=== PATIENT | female | born 1945 | race Caucasian/White ===

== ENCOUNTER 2017-01-28 18:07 | Inpatient (IN) | payer OTHER ==
[~2017-01-28] VITALS: Ht 162.6 cm; Wt 83.9 kg
[2017-01-28] MEDS ORDERED: COREG3.125 MG ORAL (18:08)
[2017-01-28] MEDS ORDERED: TRAZODONE HCL150 MG ORAL (18:08)
[2017-01-28] MEDS ORDERED: OXYCODONE HCL5 M2 ORAL (18:08)
[2017-01-28] MEDS ORDERED: CARVEDILOL3.125 MG ORAL (18:08)
[2017-01-28] MEDS ORDERED: GABAPENTIN100 MG ORAL (18:08)
[2017-01-28] MEDS ORDERED: FUROSEMIDE20 M1 ORAL (18:08)
[2017-01-28 18:15] VITALS: BP 168/71
[2017-01-28 18:30] VITALS: BP 101/56
[2017-01-28 19:07] LABS: APPEARANCE,URINE CLEAR; BASOPHILS % (AUTO) 0.7 % (0.0-2.0); EOSINOPHILS % (AUTO) 0.5 % (0.0-3.0); KETONES,URINE 3+ (NEGATIVE); LEUKOCYTE ESTERASE ,URINE 1+ (NEGATIVE); LYMPHOCYTES % (AUTO) 17.8 % (20.0-45.0); MEAN CORPUSCULAR HEMOGLOBIN 29.6 PG (27.0-31.0); MEAN CORPUSCULAR HGB CONC 33.1 G/DL (32.0-36.0); MEAN CORPUSCULAR VOLUME 89 FL (80-99); MEAN PLATELET VOLUME 6.9 FL (6.5-10.1); MONOCYTES % (AUTO) 8.9 % (1.0-10.0); NEUTROPHILS % (AUTO) 72.2 % (45.0-75.0); NITRITE,URINE NEGATIVE (NEGATIVE); PH,URINE 7 (4.5-8.0); PLATELET COUNT 180 K/UL (150-450); PROTEIN,URINE 3+ (NEGATIVE); RED BLOOD COUNT 4.17 M/UL (4.20-5.40); RED CELL DISTRIBUTION WIDTH 17.3 % (11.6-14.8); UROBILINOGEN,URINE 4 MG/DL (0.0-1.0); WHITE BLOOD COUNT 5.3 K/UL (4.8-10.8)
[2017-01-28 19:14] LABS: ANION GAP 6 mmol/L (5-15); CALCIUM 9.9 MG/DL (8.5-10.1); CARBON DIOXIDE 30 MMOL/L (21-32); CHLORIDE 102 MMOL/L (98-107); CREATININE 0.9 MG/DL (0.55-1.30); POTASSIUM 4.9 MMOL/L (3.5-5.1); SODIUM 138 MMOL/L (136-145)
[2017-01-28 19:15] LABS: AMMONIA 5 umol/L (11-32); AMORPHOUS SEDIMENT,UR FEW /LPF; BACTERIA,URINE FEW /HPF; SQUAMOUS EPITHELIAL CELL,UR FEW /LPF (NONE/OCC)
[2017-01-28 19:17] LABS: ICTOTEST NEGATIVE
[2017-01-28 19:40] LABS: ALANINE AMINOTRANSFERASE 74 U/L (12-78); ALBUMIN/GLOBULIN RATIO 1.1 (1.0-2.7); ASPARTATE AMINO TRANSFERASE 123 U/L (15-37); CKMB 2.6 NG/ML (0.0-3.6); TOTAL PROTEIN 7.4 G/DL (6.4-8.2)
[2017-01-28 20:30] VITALS: BP 159/67
[2017-01-28 21:00] VITALS: BP 171/88
[2017-01-28 21:40] VITALS: BP 156/76
[2017-01-28 22:00] VITALS: BP 171/88
--- NOTE | 2017-01-28 22:38 | Emergency Room Report ---
History of Present Illness General Chief Complaint: Altered Level of Consciousness Source: Patient Present Illness HPI 71-year-old female presents ED for evaluation. Daughter at bedside states that patient has been more altered his usual. Daughter called patient today and on the phone patient appeared confused and forgetful. Patient is normally awake alert oriented x4. Patient lives by herself. Last normal was 2 days ago. Patient states she feels okay but is not know why she is here. Denies any fevers or chills. She has history of aneurysm. Denies headache. Does not remember speaking her daughter earlier today. denies chest pain or shortness of breath. Allergies: Coded Allergies: ATORVASTATIN (Verified Allergy, Unknown, 01/28/17) CIPROFLOXACIN (Verified Allergy, Unknown, 01/28/17) NSAIDS (NON-STEROIDAL ANTI-INFLAMMA (Verified Allergy, Unknown, 01/28/17) Patient History Past Medical History: DM, HTN Past Surgical History: none Pertinent Family History: none Social History: Denies: smoking, alcohol use, drug use Last Menstrual Period: NA Now: No Immunizations: UTD Reviewed Nursing Documentation: PMH: Agreed, PSxH: Agreed Nursing Documentation-PMH Hx Hypertension: Yes Hx Diabetes: Yes Review of Systems All Other Systems: negative except mentioned in HPI Physical Exam Vital Signs Date Time Temp Pulse Resp B/P (MAP) Pulse Ox O2 Delivery O2 Flow Rate FiO2 01/28/17 18:01 97.9 102 16 178/83 97 Room Air Sp02 EP Interpretation: reviewed, normal General Appearance: no apparent distress, alert, GCS 15, non-toxic Head: normocephalic, atraumatic Eyes: bilateral eye normal inspection, bilateral eye PERRL ENT: hearing grossly normal, normal pharynx, no angioedema, normal voice Neck: full range of motion, supple/symm/no masses Respiratory: chest non-tender, lungs clear, normal breath sounds, speaking full sentences Cardiovascular #1: regular rate, rhythm, no edema Cardiovascular #2: 2+ carotid (R), 2+ carotid (L), 2+ radial (R), 2+ radial (L) , 2+ dorsalis pedis (R), 2+ dorsalis pedis (L) Gastrointestinal: normal bowel sounds, non tender, soft, non-distended, no guarding, no rebound Rectal: deferred Genitourinary: normal inspection, no CVA tenderness Musculoskeletal: back normal, gait/station normal, normal range of motion, non- tender Neurologic: alert, responsive, motor strength/tone normal, sensory intact, speech normal, other - AAOX2 Psychiatric: mood/affect normal, no suicidal/homicidal ideation, other - confused Reflexes: 3+ bicep (R), 3+ bicep (L), 3+ tricep (R), 3+ tricep (L), 3+ knee (R) , 3+ knee (L) Skin: normal color, no rash, warm/dry, well hydrated Lymphatic: no adenopathy Medical Decision Making Diagnostic Impression: Primary Impression: Altered level of consciousness ER Course Hospital Course 71-year-old female presents to ED with increased confusion x2 days Differential diagnoses include: VA/unstable angina, arrythmia, dehydration, CVA/ TIA Clinical course Patient placed on stretcher. on teletypesetter monitor. After initial history and physical I ordered labs, EKG, chest x-ray, IVFs, CT Brain labs reviewed- no leukocytosis, hemoglobin/hematocrit ok, electrolytes okay, troponins negative, ammonia ok, UA negative EKG- NSR, no acute ischemic changes interpreted by me Chest x-ray- no acute process CT brain- no acute process. evidence of aneruysmal coiling Case discussed with Dr. Archuleta and he agreed to accept the patient to his service for further care and support I. I feel this is a highly complex case requiring extensive working including EKG/Rhythm strip, Xray/CT/US, Blood/urine lab work, repeat exams while in ED, and administration of strong opiates/narcotics for pain control, admission to hospital or close patient follow up. Diagnosis - ALOC admitted to floor in serious condition Labs Test 01/28/17 18:30 White Blood Count 5.3 K/UL (4.8-10.8) Red Blood Count 4.17 M/UL (4.20-5.40) Hemoglobin 12.4 G/DL (12.0-16.0) Hematocrit 37.3 % (37.0-47.0) Mean Corpuscular Volume 89 FL (80-99) Mean Corpuscular Hemoglobin 29.6 PG (27.0-31.0) Mean Corpuscular Hemoglobin Concent 33.1 G/DL (32.0-36.0) Red Cell Distribution Width 17.3 % (11.6-14.8) Platelet Count 180 K/UL (150-450) Mean Platelet Volume 6.9 FL (6.5-10.1) Neutrophils (%) (Auto) 72.2 % (45.0-75.0) Lymphocytes (%) (Auto) 17.8 % (20.0-45.0) Monocytes (%) (Auto) 8.9 % (1.0-10.0) Eosinophils (%) (Auto) 0.5 % (0.0-3.0) Basophils (%) (Auto) 0.7 % (0.0-2.0) Urine Color Yellow Urine Appearance Clear Urine pH 7 (4.5-8.0) Urine Specific [place] 1.010 (1.005-1.035) Urine Protein 3+ (NEGATIVE) Urine Glucose (UA) Negative (NEGATIVE) Urine Ketones 3+ (NEGATIVE) Urine Occult Blood 1+ (NEGATIVE) Urine Nitrite Negative (NEGATIVE) Urine Bilirubin 1+ (NEGATIVE) Urine Ictotest Negative Urine Urobilinogen 4 MG/DL (0.0-1.0) Urine Leukocyte Esterase 1+ (NEGATIVE) Urine RBC 5-10 /HPF (0 - 2) Urine WBC 2-4 /HPF (0 - 2) Urine Squamous Epithelial Cells Few /LPF (NONE/OCC) Urine Amorphous Sediment Few /LPF (NONE) Urine Bacteria Few /HPF (NONE) Urine Fine Granular Casts 2-4 /LPF (NONE) Sodium Level 138 MMOL/L (136-145) Potassium Level 4.9 MMOL/L (3.5-5.1) Chloride Level 102 MMOL/L (98-107) Carbon Dioxide Level 30 MMOL/L (21-32) Anion Gap 6 mmol/L (5-15) Blood Urea Nitrogen 16 mg/dL (7-18) Creatinine 0.9 MG/DL (0.55-1.30) Estimat Glomerular Filtration Rate mL/min (>60) Glucose Level 121 MG/DL (74-106) Lactic Acid Level 1.30 mmol/L (0.66-2.22) Calcium Level 9.9 MG/DL (8.5-10.1) Total Bilirubin 1.0 MG/DL (0.2-1.0) Aspartate Amino Transf (AST/SGOT) 123 U/L (15-37) Alanine Aminotransferase (ALT/SGPT) 74 U/L (12-78) Alkaline Phosphatase 181 U/L (46-116) Ammonia 5 umol/L (11-32) Total Creatine Kinase 57 U/L (26-308) Creatine Kinase MB 2.6 NG/ML (0.0-3.6) Creatine Kinase MB Relative Index 4.5 Troponin I 0.026 ng/mL (0.000-0.056) Pro-B-Type Natriuretic Peptide 1507 pg/mL (0-125) Total Protein 7.4 G/DL (6.4-8.2) Albumin 3.8 G/DL (3.4-5.0) Globulin 3.6 g/dL Albumin/Globulin Ratio 1.1 (1.0-2.7) EKG Diagnostic Results Rate: normal Rhythm: NSR ST Segments: no acute changes Rhythm Strip Diag. Results Rhythm: NSR, no PVC's, no ectopy Chest X-Ray Diagnostic Results Chest X-Ray Diagnostic Results : Chest X-Ray Ordered: Yes # of Views/Limited/Complete: 1 View Indication: Other - ams EP Interpretation: Yes Interpretation: no consolidation, no effusion, no pneumothorax, no acute cardiopulmonary disease Impression: No acute disease Electronically Signed by: Electronically signed by Adam Magaña MD CT/MRI/US Diagnostic Results CT/MRI/US Diagnostic Results : Imaging Test Ordered: CT Head Impression evidence of coiling. no acute process/bleed Last Vital Signs Date Time Temp Pulse Resp B/P (MAP) Pulse Ox O2 Delivery O2 Flow Rate FiO2 01/28/17 21:40 79 12 156/76 98 Room Air 01/28/17 21:40 98.0 Status: unchanged Disposition: ADMITTED INPATIENT Condition: Serious Referrals: [facility],REFERRING (PCP) ADAM MAGAÑA M.D. Jan 28, 2017 22:38
[2017-01-29 04:00] VITALS: BP 159/79
[2017-01-29 05:45] LABS: BASOPHILS % (AUTO) 0.8 % (0.0-2.0); EOSINOPHILS % (AUTO) 1.7 % (0.0-3.0); LYMPHOCYTES % (AUTO) 23.4 % (20.0-45.0); MEAN CORPUSCULAR HEMOGLOBIN 29.6 PG (27.0-31.0); MEAN CORPUSCULAR HGB CONC 33.3 G/DL (32.0-36.0); MEAN CORPUSCULAR VOLUME 89 FL (80-99); MEAN PLATELET VOLUME 6.3 FL (6.5-10.1); MONOCYTES % (AUTO) 12.5 % (1.0-10.0); NEUTROPHILS % (AUTO) 61.6 % (45.0-75.0); PLATELET COUNT 144 K/UL (150-450); RED BLOOD COUNT 3.72 M/UL (4.20-5.40); RED CELL DISTRIBUTION WIDTH 17.1 % (11.6-14.8); WHITE BLOOD COUNT 4.3 K/UL (4.8-10.8)
[2017-01-29 05:53] LABS: PROTHROMBIN TIME 10.1 SEC (9.30-11.50)
[2017-01-29] MEDS ORDERED: Zosyn 3.375gm inj ONE (05:54)
[2017-01-29 06:13] LABS: ALANINE AMINOTRANSFERASE 152 U/L (12-78); ALBUMIN/GLOBULIN RATIO 0.9 (1.0-2.7); ANION GAP 7 mmol/L (5-15); ASPARTATE AMINO TRANSFERASE 254 U/L (15-37); CALCIUM 9.5 MG/DL (8.5-10.1); CARBON DIOXIDE 28 MMOL/L (21-32); CHLORIDE 103 MMOL/L (98-107); CREATININE 0.9 MG/DL (0.55-1.30); POTASSIUM 3.8 MMOL/L (3.5-5.1); SODIUM 138 MMOL/L (136-145); TOTAL PROTEIN 6.9 G/DL (6.4-8.2)
[2017-01-29] MEDS: Piperacillin/Tazobactam 3.375 GM in D5W 55 ML IVPB SCH ×2 (06:21→14:00)
[2017-01-29 06:24] LABS: BILIRUBIN,DIRECT 0.4 MG/DL (0.0-0.3)
[2017-01-29 06:53] LABS: AMMONIA 23 umol/L (11-32)
[2017-01-29 08:00] VITALS: BP 155/72
[2017-01-29] MEDS: Heparin 5000 units/ml inj SUBQ SCH ×2 (08:55→20:54)
--- NOTE | 2017-01-29 09:26 | Diagnostic Imaging Report ---
Indications: Altered mental status Technique: Spiral acquisitions obtained through the brain. Angled axial and coronal 5 x 5 mm slices were reconstructed. Total dose length product 1390 mGycm. CTDI vol(s) 70 mGy. Dose reduction achieved using automated exposure control Comparison: None. Findings: There are supraclinoid aneurysm coils present. The throw off streak artifact which may obscure pathology. There is encephalomalacia of the inferior parasagittal left frontal lobe. There is minimal encephalomalacia of the inferior right frontal lobe. This results in mild ex vacuo dilatation of the inferior frontal horn of the left lateral ventricle. No acute intracranial hemorrhage or edema. No mass effect nor midline shift. Normal smalls-white differentiation. There is mild age-related enlargement of the ventricles and extra axial CSF spaces. The included orbits and sinuses are unremarkable. The calvarium is intact. 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 Bilateral left greater than right inferior frontal encephalomalacia Negative for acute intracranial bleed or mass effect This agrees with the preliminary interpretation provided overnight by [facility] teleradiology service. The CT scanner at [facility] is accredited by the [employer] and the scans are performed using protocols designed to limit radiation exposure to as low as reasonably achievable to attain images of sufficient resolution adequate for diagnostic evaluation.
--- NOTE | 2017-01-29 09:27 | Diagnostic Imaging Report ---
Indication: Shortness of breath Technique: One view of the chest Comparison: none Findings: Lungs and pleural spaces are clear. Heart size is normal. The aorta is tortuous Impression: No acute process
[2017-01-29 12:00] VITALS: BP 154/77
--- NOTE | 2017-01-29 15:06 | Diagnostic Imaging Report ---
Indication: Abnormal liver function tests Technique: Childress-scale and duplex images of the upper abdomen were obtained Comparison: none Findings: Gallbladder is surgically absent. Sonographic Smith's sign is negative. Common bile duct measures 15 mm in diameter. There is some intrahepatic ductal dilatation on the left. Liver demonstrates slightly heterogeneous echogenicity, no focal abnormality Portal vein and hepatic veins are patent. Pancreas is unremarkable. Spleen is unremarkable. Left kidney measures 10.5 cm in length. Right kidney measures 9.6 cm length. Both kidneys demonstrate normal echogenicity. There is no hydronephrosis. There is a small right renal cyst . Non-aneurysmal abdominal aorta . Impression: Surgically absent gallbladder Dilated extrahepatic and central intrahepatic bile ducts. While possibly on the basis of age and postcholecystectomy state, the degree of dilatation is striking and raises concern for downstream obstructive process. Correlate with liver function tests, consider MRCP or CT scan for better characterization Incidental finding small right renal cyst
[2017-01-29 16:00] VITALS: BP 150/72
[2017-01-29] MEDS: Losartan 50mg tab ORAL SCH ×2 (18:30→20:53)
[2017-01-29 20:00] VITALS: BP 134/64
[2017-01-29] MEDS ORDERED: TraZODone 100mg tab ORAL SCH (21:00)
--- NOTE | 2017-01-29 23:01 | History and Physical Report ---
DATE OF ADMISSION: 01/28/2017 CHIEF COMPLAINT: Confusion. HISTORY OF PRESENT ILLNESS: This patient is a 71-year-old woman who came to the hospital from home. She lives by herself. The daughter called the patient and found that she was confused and forgetful, which is not her usual state. She was brought to the emergency department and found to have encephalopathy of acute nature, but the etiology was not clear. The patient had a lumbar sympathectomy about 2 or 3 days earlier and states that she had diarrhea following that procedure. PAST MEDICAL HISTORY: Diabetes, hypertension, and hyperlipidemia. She denies cardiac or pulmonary disease, stroke, or neurologic disorder. She has no nausea, vomiting, or diarrhea. She has no gastrointestinal problems. She has been followed recently for elevated liver enzymes. She had a suicide attempt about four years ago and injured the nerves in her right leg and has chronic pain there. Her diabetes is diet controlled. She is unable to take statin medications and is on no medication for her hyperlipidemia. ALLERGIES: Lipitor, Cipro, and nonsteroidal anti-inflammatories. REVIEW OF SYSTEMS: Otherwise unremarkable. She is feeling much better today. PHYSICAL EXAMINATION: GENERAL: The patient is alert and responds appropriately. She does not seem encephalopathic at this time. VITAL SIGNS: Blood pressure is 154/77, other vital signs are normal. She is overweight. HEENT: The head is normocephalic. NECK: No jugular vein distention. CHEST: Clear. CARDIAC: Rhythm is regular. ABDOMEN: Soft and nontender. Liver and spleen not enlarged. EXTREMITIES: No clubbing, cyanosis, or edema. NEUROLOGIC: Alert and oriented x4. Able to move all extremities. LABORATORY AND DIAGNOSTIC STUDIES: The liver enzymes are mildly to moderately elevated. Renal function is normal. Hemogram shows mild anemia. Platelets were normal on admission. Urinalysis is negative for acute infection. There were some ketones noted. Blood sugar was 104. Toxicology was positive for benzodiazepines. Coagulation is normal. Imaging showed a negative CT head and chest x-ray. Abdominal ultrasound showed evidence of dilated ducts with post cholecystectomy state. IMPRESSIONS: 1. Acute encephalopathy, resolved. 2. Diarrhea, resolved. 3. Hypertension. 4. Hyperlipidemia. 5. Diabetes, diet controlled. PLAN: The patient is ambulating independently with a walker. We will give some intravenous fluids and plan early to discharge home. Osmin Archuleta M.D. DR: ASHUTOSH JOB#: [id number] CC:
[2017-01-30 04:00] VITALS: BP 171/77
[2017-01-30 08:00] VITALS: BP 153/80
[2017-01-30 08:12] LABS: BASOPHILS % (AUTO) 1.2 % (0.0-2.0); EOSINOPHILS % (AUTO) 3.5 % (0.0-3.0); LYMPHOCYTES % (AUTO) 27.6 % (20.0-45.0); MEAN CORPUSCULAR HEMOGLOBIN 30.4 PG (27.0-31.0); MEAN CORPUSCULAR HGB CONC 33.8 G/DL (32.0-36.0); MEAN CORPUSCULAR VOLUME 90 FL (80-99); MEAN PLATELET VOLUME 6.4 FL (6.5-10.1); MONOCYTES % (AUTO) 10.5 % (1.0-10.0); NEUTROPHILS % (AUTO) 57.3 % (45.0-75.0); PLATELET COUNT 143 K/UL (150-450); RED BLOOD COUNT 3.91 M/UL (4.20-5.40); RED CELL DISTRIBUTION WIDTH 16.9 % (11.6-14.8); WHITE BLOOD COUNT 4.3 K/UL (4.8-10.8)
[2017-01-30] MEDS: Losartan 50mg tab ORAL SCH (08:19)
[2017-01-30] MEDS: Heparin 5000 units/ml inj SUBQ SCH (08:20)
[2017-01-30 09:05] LABS: ALANINE AMINOTRANSFERASE 112 U/L (12-78); ALBUMIN/GLOBULIN RATIO 0.9 (1.0-2.7); ANION GAP 10 mmol/L (5-15); ASPARTATE AMINO TRANSFERASE 93 U/L (15-37); CALCIUM 9.5 MG/DL (8.5-10.1); CARBON DIOXIDE 27 MMOL/L (21-32); CHLORIDE 105 MMOL/L (98-107); CREATININE 0.9 MG/DL (0.55-1.30); POTASSIUM 3.8 MMOL/L (3.5-5.1); SODIUM 141 MMOL/L (136-145); TOTAL PROTEIN 7.1 G/DL (6.4-8.2)
[2017-01-30 09:30] VITALS: BP 144/67
[2017-01-30] MEDS ORDERED: Tubing IV Secondary IV ONE (10:59)
[2017-01-30] MEDS ORDERED: NS 500ML ONE (10:59)
--- NOTE | 2017-01-31 14:44 | Cardiology Report ---
APPROVED REPORT EKG Measurement Heart [id number] ID [id number] Sinus rhythm with 1st degree AV block Minimal voltage criteria for LVH, may be normal variant Borderline ECG
--- NOTE | 2017-02-02 11:51 | Discharge Summary ---
Discharge Summary Hospital Course Date of Admission Jan 28, 2017 at 20:10 Date of Discharge Jan 30, 2017 at 11:00 Admitting Diagnosis ALTERED MENTAL STATUS HPI Kay Orellana is a 71 year old female who was admitted on Jan 28, 2017 at 20: 10 for Altered Mental Status Hospital Course dc summary #[id number] Discharge Medications Continued Medications: Carvedilol* (Carvedilol*) 3.125 Mg Tablet 3.125 MG ORAL EVERY 12 HOURS, TAB Gabapentin* (Gabapentin*) 100 Mg Capsule 100 MG ORAL THREE TIMES A DAY, CAP Oxycodone Hcl* (Oxycodone Hcl*) 5 Mg Capsule 5 MG ORAL Q4H PRN for For Pain, CAP 0 Refills Trazodone* (Trazodone*) 150 Mg Tablet 150 MG ORAL BEDTIME, TAB Discharge Condition Upon Discharge: stable Discharge Disposition Patient was discharged to Home (01) Discharge Diagnoses: Discharge Instructions Discharge Instructions Special Instructions I have been assigned to complete a D/C Summary on this account. I was not involved in the patient management Linda Gauthier NP ([place]) Feb 02, 2017 11:51
--- NOTE | 2017-02-03 02:32 | Discharge Summary 2 SIG ---
DATE OF ADMISSION: 01/28/2017 DATE OF DISCHARGE: 01/30/2017 REASON FOR ADMISSION: 71-year-old female with a history of diabetes, hypertension, and hyperlipidemia was brought because of altered mental status. Her daughter called her and found that she was confused and forgetful, which was not her usual state. The patient was brought to emergency room for evaluation and was diagnosed with encephalopathy. The patient also had a lumbar sympathectomy about two to three days ago and since that time, she had diarrhea following the procedure. The patient denied nausea or vomiting. No other gastrointestinal problems. She recently was followed up for elevated liver enzymes. She was not taking statin previously, since she was allergic to all statins. Her diabetes was diet controlled. In the emergency department, troponin was negative. Ammonia was within normal limits. Urinalysis negative for evidence of urinary tract infection. Hemoglobin and hematocrit remained stable. Electrolytes within normal limits. No leukocytosis. Chest x-ray revealed no acute cardiopulmonary pathology. CT of the head revealed no acute intracranial pathology, but showed evidence of aneurysmal coiling. The patient was admitted for further management with the diagnosis of acute encephalopathy, diarrhea, hypertension, hyperlipidemia, and diabetes. HOSPITAL COURSE: The patient was admitted. The patient was started on gentle IV fluids. The patient was working with physical and occupational therapists. Blood pressure was controlled with beta-tonio and remained stable. Glucose was stable. Noted elevated LFT. They were trending down. Abdominal ultrasound revealed dilated extrahepatic and central intrahepatic bile ducts. The degree of dilatation raised concern for possible obstructive process. The patient had no abdominal complaints. LFT were trending down. The patient to follow up with the primary medical doctor on outpatient for further workup for elevated LFT. FINAL DIAGNOSES: 1. Acute encephalopathy, resolved. 2. Diarrhea, resolved. 3. Hypertension. 4. Hyperlipidemia. 5. Diabetes, diet controlled. DISCHARGE MEDICATIONS: See medication reconciliation list. DISCHARGE INSTRUCTIONS: The patient was discharged home. FOLLOWUP: Follow up with the primary medical doctor next week for further workup for elevated LFT. Osmin Archuleta M.D. I have been assigned to dictate discharge summary on this account and I was not involved in the patient's management. Linda Gauthier N.P. ([place]te[place]) DR: CINTHIA JOB#: [id number] CC: JEAN MARIE
== END 2017-01-30 11:00 | disposition home or self-care (01) | DRG 72 ==
LOC: EDBD 18:07 → EMR 18:43 → 3E 20:10 → EDBEDREQ 20:50
DX: G93.40 Encephalopathy, unspecified (principal); E11.9 Type 2 diabetes mellitus without complications; I10 Essential (primary) hypertension; E78.5 Hyperlipidemia, unspecified; R19.7 Diarrhea, unspecified; Z98.890 Other specified postprocedural states; Z88.8 Allergy status to other drugs, medicaments and biological substances; Z88.6 Allergy status to analgesic agent; Z88.1 Allergy status to other antibiotic agents; G89.29 Other chronic pain; M79.604 Pain in right leg
CPT/HCPCS: 36415; 51701; 70450; 71010; 76700; 80053; 80307; 81003; 82140; 82248; 82550; 82553; 82962; 83605; 83880; 84484; 85025; 85610; 87040; 87086; 87181; 93005; 99285